=== PATIENT | female | born 1995 | race Hispanic/Latino ===

== ENCOUNTER 2020-09-01 20:19 | Emergency (ER) | payer BC ==
[~2020-09-01] VITALS: Ht 160 cm; Wt 129.3 kg
[2020-09-01] MEDS ORDERED: AZITHROMYCIN250 MG PO (21:35)
[2020-09-01] MEDS ORDERED: MEDROL4 MG PO (21:36)
[2020-09-01] MEDS ORDERED: PROVENTIL HFA6.7 GM INH (21:36)
== END 2020-09-01 22:00 | disposition home or self-care (01) ==
LOC: FSED 20:45
DX: R05 Cough (principal); J20.9 Acute bronchitis, unspecified; J30.2 Other seasonal allergic rhinitis
CPT/HCPCS: 99282

== ENCOUNTER 2024-03-05 18:03 | Emergency (ER) | payer BC, OTHER ==
[~2024-03-05] VITALS: Ht 160 cm; Wt 113.4 kg
[~2024-03-05 18:03] MED LIST: AZITHROMYCIN250 MG PO; MEDROL4 MG PO; PROVENTIL HFA6.7 GM INH
[2024-03-05] MEDS: IBUPROFEN 600 MG TAB PO STA (18:16)
[2024-03-05] MEDS ORDERED: KETOROLAC TROME10 MG PO (18:28)
[2024-03-05] MEDS: TRAMADOL HCL 50 MG TAB PO ONE (18:35)
[2024-03-05 18:50] VITALS: PULSE 82; RESP 16; TEMP 98.1; O2SAT 100
== END 2024-03-05 19:10 | disposition home or self-care (01) ==
LOC: ER 18:10
DX: S93.491A Sprain of other ligament of right ankle, initial encounter (principal); X50.1XXA Overexertion from prolonged static or awkward postures, initial encounter; Y93.01 Activity, walking, marching and hiking; Y92.89 Other specified places as the place of occurrence of the external cause
CPT/HCPCS: 99284